=== PATIENT | female | born 1960 | race American Indian/Alaskan Native ===

== ENCOUNTER 2017-01-15 08:50 | Outpatient (CLI) | payer BC ==
--- NOTE | 2017-01-15 15:16 | Mammography Report ---
BILATERAL DIGITAL SCREENING MAMMOGRAM with CAD : 01/15/17 08:50:00 CLINICAL: Routine screening. COMPARISON:05/31/15 FINDINGS: The breasts are heterogeneously dense, which may obscure small masses.Right upper biopsy clip. Scattered bilateral calcifications are not significantly changed compared to the prior exam. No mass, architectural distortion or suspicious calcifications. IMPRESSION: No mammographic evidence of malignancy. BI-RADS CATEGORY: 2 -- Benign RECOMMENDATION: Routine mammographic screening in one year. COMMENT: Patient follow-up letters are generated by our [employer] [place] application.
== END 2017-01-15 08:51 | disposition home or self-care (01) ==
LOC: SPVWC 08:50
PROVIDERS: ATTEND Nurse Practitioner
DX: Z12.31 Encounter for screening mammogram for malignant neoplasm of breast (principal)
CPT/HCPCS: 77067; G0202

== ENCOUNTER 2019-07-22 10:59 | Outpatient (CLI) | payer BC ==
--- NOTE | 2019-07-22 16:12 | Mammography Report ---
DIGITAL SCREENING MAMMOGRAM WITH CAD, 07/22/2019 INDICATION: Routine screening mammography. TECHNIQUE: Digital bilateral 2D mammography was obtained in the craniocaudal and mediolateral obliq ue projections. This examination was interpreted with the benefit of Computer-Aided Detection analysi s. COMPARISON: 05/13/2018 FINDINGS: Breast Density: The breasts are heterogeneously dense, which may obscure small masses. There is no evidence of dominant mass, suspicious calcifications or architectural distortion in eithe r breast. A right upper outer biopsy clip. Stable bilateral calcifications with benign morphology. IMPRESSION: No mammographic evidence of malignancy. Follow up recommendation: Routine yearly BI-RADS Category 2: Benign. A "normal" or negative report should not discourage follow up or biopsy of a clinically significant f inding. A written summary of these findings will be mailed to the patient. The patient will be entered into a mammography reporting system which will generate a reminder letter for the patient's next appointmen t at the appropriate interval. The [employer] recommends yearly mammograms starting at age 40 and continuing as l ghassan as a woman is in good health. Breast MRI is recommended for women with an approximate 20-25% or greater lifetime risk of breast cancer, including women with a strong family history of breast or ova rosemary cancer or who have been treated for Hodgkin's disease. Signer Name: Michael Adamson MD Signed: 07/22/2019 4:08 PM Workstation Name: [id number]
== END 2019-07-22 11:00 | disposition home or self-care (01) ==
LOC: SPVWC 10:59
PROVIDERS: ATTEND Nurse Practitioner
DX: Z12.31 Encounter for screening mammogram for malignant neoplasm of breast (principal)
CPT/HCPCS: 77067

== ENCOUNTER 2020-09-17 12:37 | Outpatient (CLI) | payer BC | END 2020-09-17 12:38 | disposition home or self-care (01) | LOC: SPVWC 12:37 | PROVIDERS: ATTEND Internal Medicine | DX: Z12.31 Encounter for screening mammogram for malignant neoplasm of breast (principal) | CPT/HCPCS: 77067 ==

== ENCOUNTER 2021-10-25 15:22 | Outpatient (CLI) | payer BC ==
--- NOTE | 2021-10-27 11:49 | Mammography Report ---
DIGITAL SCREENING MAMMOGRAM WITH CAD, 10/25/2021 CLINICAL INFORMATION / INDICATION: Routine screening mammography. SCREENING MAMMO Z12.31 TECHNIQUE: Digital bilateral 2D mammography was obtained in the craniocaudal and mediolateral obliqu e projections. This examination was interpreted with the benefit of Computer-Aided Detection analysis . COMPARISON: 01/15/2017 through 09/17/2020. FINDINGS: Breast Density: There are scattered areas of fibroglandular density. There are grouped calcifications in the right medial breast posteriorly in a linear distribution. Alt gayle the calcifications are similar to prior studies, they appear suspicious. There are additional b enign-appearing calcifications in the right upper outer quadrant and there is a biopsy clip in the ri ght upper outer quadrant. Benign-appearing calcifications in the left breast are stable. There is a left breast scar. IMPRESSION: Grouped calcifications in the right medial breast are in a linear distribution. Magnifica tion views are recommended for further characterization. Follow up recommendation: Special View: Mag BI-RADS Category 0: INCOMPLETE. Needs additional imaging evaluation and/or prior mammograms for santos gonzalez. A "normal" or negative report should not discourage follow up or biopsy of a clinically significant f inding. A written summary of these findings will be mailed to the patient. The patient will be entered into a mammography reporting system which will generate a reminder letter for the patient's next appointmen t at the appropriate interval. The [employer] recommends yearly mammograms starting at age 40 and continuing as l ghassan as a woman is in good health. Breast MRI is recommended for women with an approximate 20-25% or greater lifetime risk of breast cancer, including women with a strong family history of breast or ova rosemary cancer or who have been treated for Hodgkin's disease. Signer Name: Baudilio Rosenberg MD Signed: 10/27/2021 11:44 AM Workstation Name: [id number]
== END 2021-10-25 15:23 | disposition home or self-care (01) ==
LOC: SPVWC 15:22
PROVIDERS: ATTEND Internal Medicine
DX: Z12.31 Encounter for screening mammogram for malignant neoplasm of breast (principal)
CPT/HCPCS: 77067